=== PATIENT | female | born 1955 | race Hispanic/Latino ===

== ENCOUNTER 2019-11-07 13:22 | Outpatient (CLI) | payer OTHER ==
--- NOTE | 2019-11-07 15:10 | MMO ---
Bilateral MAMMO Bilat Diag DDI+MINOR. CLINICAL HISTORY: Patient is 64 years old and is seen for diagnostic exam,palpable abnormality and nipple abnormality in the left breast. The patient has no family history of breast cancer. The patient has no personal history of cancer. VIEWS: The views performed were: bilateral craniocaudal with tomosynthesis; bilateral mediolateral oblique with tomosynthesis; and bilateral mediolateral with tomosynthesis. FILMS COMPARED: The present examination has been compared to prior imaging studies performed at [facility] on 05/09/2012, 11/13/2014 and 11/07/2019. This study has been interpreted with the assistance of computer-aided detection. MAMMOGRAM FINDINGS: There are scattered fibroglandular densities. Finding 1: There are stable benign appearing calcifications seen in both breasts. Finding 2: There is a new irregular mass measuring 25 millimeters with spiculated margins seen in the left breast at 10 o'clock. Finding 3: There is a new irregular mass measuring 7 millimeters with indistinct margins and associated amorphous or indistinct calcifications seen in the right breast at 2 o'clock. Finding 4: There is a focal asymmetry measuring 18 millimeters with obscured margins seen in the upper-outer region of the right breast. IMPRESSION: FINDING 1: STABLE CALCIFICATIONS IN BOTH BREASTS ARE BENIGN. FINDING 2: NEW MASS IN THE LEFT BREAST IS HIGHLY SUGGESTIVE OF MALIGNANCY. AN ULTRASOUND-GUIDED BREAST BIOPSY IS RECOMMENDED. ULTRASOUND - SPICULATED MASS IS THE PALPABLE FINDING FINDING 3: NEW MASS IN THE RIGHT BREAST AT 2 O'CLOCK IS SUSPICIOUS. AN ULTRASOUND-GUIDED BREAST BIOPSY IS RECOMMENDED. MASS WITH DISTORTION ON ULTRASOUND. FINDING 4: FOCAL ASYMMETRY IN THE UPPER-OUTER REGION OF THE RIGHT BREAST IS SUSPICIOUS. AN ULTRASOUND-GUIDED BREAST BIOPSY IS RECOMMENDED. SOLID ON ULTRASOUND THE RESULTS OF THIS EXAM WERE SENT TO THE PATIENT. ACR BI-RADS Category 5 - Highly suggestive of malignancy - appropriate action should be taken MAMMOGRAPHY NOTE: 1. A negative mammogram report should not delay a biopsy if a dominant of clinically suspicious mass is present. 2. Approximately 10% to 15% of breast cancers are not detected by mammography. 3. Adenosis and dense breasts may obscure an underlying neoplasm. Reported by: YANE ACOSTA MD Electonically Signed: [id number]
--- NOTE | 2019-11-07 15:36 | ULT ---
RIGHT BREAST ULTRASOUND: 11/07/19 HISTORY: Patient presents with a palpable finding in the left breast and abnormal mammographic findings in the right breast. In the 2 o'clock position of the right breast, approximately 3 cm from the nipple, the re is a poorly circumscribed solid mass measuring 0.4 x 0.6 x 0.6 cm in size. I feel that this corres ponds to the mass and associated microcalcifications in the 2 o'clock position of the right breast se en on diagnostic mammogram. In addition, there is a poorly circumscribed somewhat multilobulated appe aring masses with some shadowing in the 11 o'clock aspect of the right breast. There are possibly two additional smaller masses, immediately adjacent to this larger mass. These also appear to be potenti ally solid. These certainly have a suspicious appearance. This area at 11 o'clock 2 cm from the nipp le corresponds to an area of parenchymal dense asymmetry on the diagnostic mammogram. IMPRESSION: Poorly circumscribed 0.4 x 0.6 x 0.6 cm diameter mass in the 2 o'clock position 3 cm from the nipple in the right breast. This has a suspicious appearance. Ultrasound guided biopsy is recommended. BI-RADS 4: Suspicious Abnormality - Biopsy Should Be Considered Usually requires biopsy Suspicious finding in the 2 o'clock position of the right breast. Poorly circumscribed solid mass cor responding to area on mammogram with some associated microcalcifications. Ultrasound guided biopsy is recommended. Second abnormal finding in the 11 o'clock position in the right breast which is greater than 2 cm in diameter solid and shows some shadowing and potentially two adjacent solid satellite lesions. BI-RADS 4: Suspicious Abnormality - Biopsy Should Be Considered. Usually requires biopsy. Ultrasound guided biopsy is recommended. The patient is being scheduled for the ultrasound guided biopsies. Findings were discussed at length with the patient using a embroiderer. POS: OFF
--- NOTE | 2019-11-07 16:02 | ULT ---
LEFT BREAST ULTRASOUND: 11/07/19 HISTORY: Patient presents with a palpable finding in the 10 o'clock aspect of the left breast. Diagnostic mamm ogram demonstrates a spiculated mass. Ultrasound examination at the 10 o'clock position, 2 cm from th e nipple, demonstrates a poorly circumscribed somewhat spiculated mass measuring approximately 1.3 x 1.7 x 2 cm in size corresponding to the spiculated mass on mammogram and corresponding to the palpabl e finding. IMPRESSION: BIRADS 5: Highly Suggestive of Malignancy - Appropriate Action Should Be Taken Requires biopsy or surgical treatment Ultrasound guided biopsy is being scheduled and will be performed later this afternoon. Findings were discussed with the patient through the use of an emergency services professional. POS: OFF
--- NOTE | 2019-11-07 16:47 | MMO ---
FILMS COMPARED: The present examination has been compared to prior imaging studies performed at [facility] on 11/13/2014 and 11/07/2019. MAMMOGRAM FINDINGS: There are scattered fibroglandular densities. IMPRESSION: FINDING IN THE RIGHT BREAST IS CONFIRMED UTILIZING POST PROCEDURE MAMMOGRAM. BX CLIPS UPPER OUTER AND UPPER INNER RT BREAST. Reported by: YANE ACOSTA MD Electonically Signed: [id number]
--- NOTE | 2019-11-07 16:49 | MMO ---
FILMS COMPARED: The present examination has been compared to prior imaging studies performed at [facility] on 11/13/2014 and 11/07/2019. MAMMOGRAM FINDINGS: There are scattered fibroglandular densities. IMPRESSION: FINDING IN THE LEFT BREAST IS CONFIRMED UTILIZING POST PROCEDURE MAMMOGRAM. BX CLIP INNER MID LT BREAST. Reported by: YANE ACOSTA MD Electonically Signed: [id number]
--- NOTE | 2019-11-07 17:12 | ULT ---
PROCEDURE: Ultrasound-guided biopsy of single mass left breast and 2 masses right breast Ultrasound-guided biopsy marker clip at sites of biopsy PROVIDED CLINICAL HISTORY: Patient with bilateral mammograms demonstrating a spiculated masses in each breast with sonographic e valuation demonstrating mass at the 2:00 position left breast as well as 2:00 position right breast and area of ill-defined shadowing 10:00 position right breast. COMPARISON: Ultrasound bilateral breasts on 11/07/2019 TECHNIQUE: After informed consent was obtained, the patient was placed on the sonography table in the supine pos ition. Limited sonographic evaluation of each breast was performed to evaluate the masses and sites of each breast mass were marked. The procedure including the risks and complications were explained t o the patient via a jewel stripper. Patient verbally agreed to proceed with the procedure and understood risks and complications. Informed consent was signed. Left breast at site of biopsy was meticulously prepped and draped in usual sterile fashion. Skin and subcutaneous tissues were infiltrated with buffered 1% lidocaine for local anesthesia, and a small skin incision was made. Utilizing concurrent real-time ultrasound guidance, a 14-gauge biopsy needle was advanced into the right breast. A total of 4 biopsy specimens were obtained. Biopsy marker clip was then deployed at site of biopsy utilizing ultrasound guidance. Hemostasis was achieved with direc t pressure, and a dry sterile dressing was placed. The left breast was meticulously prepped and draped in usual fashion. The skin and subcutaneous soft tissues at the 2:00 position left breast were infiltrated with buffered 1% lidocaine for local anesthesia. Small skin incision was made. Utilizing concurrent real-time ultrasound guidance, a 14-ga uge biopsy needle was advanced, and 4 biopsy specimens were obtained. Biopsy marker clip was then deployed at site of biopsy utilizing real-time sonographic guidance. Hemostasis was achieved with dir ect pressure. The skin and subcutaneous soft tissues at the 10:00 position right breast were infiltrated with buffe red 1% lidocaine for local anesthesia at the intended puncture site. Small skin incision was made. Utilizing concurrent real-time ultrasound guidance, a 14-gauge biopsy needle was advanced, and a tota l 4 biopsy specimens were obtained. Biopsy marker clip was then deployed utilizing ultrasound guidance at site of biopsy. Hemostasis was achieved with direct pressure. Dry sterile dressings were placed at sites of biopsy in the right breast. The patient tolerated the procedure well and without immediate consultation. Patient was transported to mammography to obtain bilateral mammograms and evaluate sites of biopsy marker clip placement. Biopsy marker clips are seen adjacent to the mammographic abnormalities at 2:00 position in each [address] which correspond to the sonographic abnormalities. Biopsy marker clip is seen in the upper outer right breast at sites of sonographic abnormality. IMPRESSION: 1. Technically successful biopsy of left breast mass 2:00 position as well as right breast masses at the 2:00 and 10:00 positions. 2. Technically successful biopsy marker clip placement at sites of biopsy in each breast. 3. Pathology is currently pending.
== END 2019-11-07 13:23 | disposition home or self-care (01) ==
LOC: BICMAMMO 13:22
PROVIDERS: ATTEND Nurse Practitioner Family
DX: N63.12 Unspecified lump in the right breast, upper inner quadrant (principal); N63.11 Unspecified lump in the right breast, upper outer quadrant; N63.21 Unspecified lump in the left breast, upper outer quadrant; R92.1 Mammographic calcification found on diagnostic imaging of breast; N64.89 Other specified disorders of breast; Q83.9 Congenital malformation of breast, unspecified
CPT/HCPCS: 19083; 19084; 77066; 88305; 88341; 88342; G0279

== ENCOUNTER 2019-12-20 23:50 | Emergency (ER) | payer OTHER | END 2019-12-21 00:38 | disposition home or self-care (01) | LOC: ERS 23:50 | DX: Z43.4 Encounter for attention to other artificial openings of digestive tract (principal); E78.5 Hyperlipidemia, unspecified; I10 Essential (primary) hypertension | CPT/HCPCS: 99282 ==

== ENCOUNTER 2020-01-08 07:48 | Outpatient (CLI) | payer OTHER ==
[2020-01-09 15:28] LABS: SARS-CoV-2 MS2 Positive; SARS-CoV-2 N Gene Negative; SARS-CoV-2 S Gene Negative; SARS-CoV-2 by NAA Not Detected (NotDetected); SARS-CoV-2 orf1ab Negative
== END 2020-01-08 07:49 | disposition home or self-care (01) ==
LOC: LABBT 07:48
PROVIDERS: ATTEND Specialist
DX: Z01.812 Encounter for preprocedural laboratory examination (principal); Z20.828 Contact with and (suspected) exposure to other viral communicable diseases; C50.911 Malignant neoplasm of unspecified site of right female breast
CPT/HCPCS: 87635; U0003

== ENCOUNTER 2020-01-11 07:23 | Day surgery (SDC) | payer OTHER ==
[2020-01-08 16:28] VITALS: BMI 29.6
[2020-01-11] MEDS ORDERED: Acetaminophen 500 MG TAB ONE (08:53)
[2020-01-11] MEDS ORDERED: Ketorolac Tromethamine 30 MG/ML VIAL ONE (08:53)
[2020-01-11 09:10] LABS: #Basophils 0.1 thou/uL (0.0-0.2); #Eosinphils 0.2 thou/uL (0.0-0.7); #Lymphocytes 1.9 thou/uL (1.20-3.40); #Monocytes 0.6 thou/uL (0.11-0.59); #Neutrophils 2.4 thou/uL (1.40-6.50); %Basophils 1.1 % (0.0-1.0); %Monocytes 10.8 % (0.0-10.0); %Neutrophils 47.2 % (42.0-75.0); Hemoglobin 14.3 g/dL (12.0-16.0); Mean Corpuscular HGB CONC 34.3 g/dL (32.0-36.0); Mean Corpuscular Volume 90.4 fL (78.0-98.0); Mean Platelet Volume 9.6 fL (7.4-10.4); Platelet Count 173 thou/uL (130-400); RBC Distribution Width 11.6 % (11.5-14.5); Red Blood Cell (RBC) Count 4.63 mill/uL (4.20-5.40); White Blood Cell (WBC) Count 5.1 thou/uL (4.8-10.8)
[2020-01-11 09:30] LABS: Anion Gap 11 mmol/L (10-20); BUN (Urea Nitrogen) 14 mg/dL (9.8-20.1); Calc. Creatinine Clearance 69 mL/min (70-130); Calcium 9.7 mg/dL (7.8-10.44); Carbon Dioxide 26 mmol/L (23-31); Chloride 107 mmol/L (98-107); Estimated GFR-MDRD 59; Glucose 101 mg/dL (80-115); Potassium 4.5 mmol/L (3.5-5.1); Sodium 139 mmol/L (136-145)
[2020-01-11] MEDS ORDERED: PHENYLEPHRINE-NS 100 MCG/ML 10 ML SYRINGE ONE (10:24)
[2020-01-11] MEDS ORDERED: Lidocaine 1% PF 5 ML VIAL ONE (10:24)
[2020-01-11] MEDS ORDERED: Dexamethasone 20 MG/5 ML VIAL ONE (10:24)
[2020-01-11] MEDS ORDERED: EPHEDRINE 25 MG/5 ML SYRINGE ONE (10:24)
[2020-01-11] MEDS ORDERED: PROPOFOL 200 MG/20 ML VIAL ONE (10:24)
[2020-01-11] MEDS ORDERED: Ondansetron PF 4 MG/2 ML Vial ONE (10:24)
[2020-01-11] MEDS ORDERED: Isosulfan Blue 50 MG/5 ML VIAL ONE (10:58)
[2020-01-11] MEDS ORDERED: Lidocaine 1% (PF) 30 ML VIAL ONE (10:58)
[2020-01-11] MEDS ORDERED: Bupivacaine/Epinephrine 0.25% 30 ML VIAL ONE ×2 (10:58→12:12)
[2020-01-11] MEDS ORDERED: Fentanyl 100 MCG/2 ML VIAL ONE (11:01)
[2020-01-11] MEDS ORDERED: HYDROmorphone 0.5 MG/0.5 ML SYRINGE ONE (11:01)
--- NOTE | 2020-01-11 12:35 | NM ---
EXAM: NM Lymphoscintigraphy PROVIDED CLINICAL HISTORY: Malignant neoplasm of unspecified site right female breast. COMPARISON: None FINDINGS: The patient was administered 0.426 mCi technetium 99m filtered sulfur colloid subcutaneously in a rig ht periareolar location in 4 separate aliquots. Immediate AP and lateral images demonstrates 2 focal areas of increased uptake seen in the axillary region likely corresponding to sentinel lymph no dewayne. After imaging of the uptake in the right axilla, patient was transported to surgery. IMPRESSION: Focal areas of uptake of radiotracer in the right axilla suggesting sentinel lymph nodes.
--- NOTE | 2020-01-11 14:02 | RAD ---
PORTABLE CHEST: 01/11/20 at 1:34 p.m. HISTORY: Mediport placement. Right breast cancer. FINDINGS: There is a left subclavian Port-A-Cath with tip in the projection of the cavoatrial junction. The hea rt size is normal. No focal areas of consolidation, pneumothoraces or pleural effusions are seen. IMPRESSION: No acute process. POS: AH
[2020-01-11] MEDS ORDERED: HYDROcodone/Acetaminophen 5/325 mg Tablet ONE (14:33)
--- NOTE | 2020-01-12 13:49 | OP ---
DATE OF PROCEDURE: 01/11/2020 PREOPERATIVE DIAGNOSES: Bilateral breast cancer, large right axillary mass (suspected heterotopic breast tissue). PROCEDURES PERFORMED: Left subclavian standard-sized power compatible MediPort placement, excision of 10 cm right axillary mass, right axillary sentinel lymph node biopsy. ANESTHESIA: General endotracheal. INDICATIONS: The patient is a 64-year-old female. She had previously undergone a left mastectomy and a right needle localized biopsy. The right-sided biopsy proved to show an area of invasive cancer in an area previously thought to be noninvasive cancer. She is therefore returned to the operating room at this time for right axillary sentinel lymph node biopsy. Due to the aggressive nature of her left breast cancer, she is felt to likely require chemotherapy, and MediPort placement is requested for this purpose. Finally, she has a large bulging mass from her right axilla that will need to be removed in order to do the sentinel lymph node biopsy. DESCRIPTION OF OPERATION: Informed consent was obtained, the patient was taken to the operating room, where general endotracheal anesthesia obtained with the patient in supine position. Bilateral chest and axilla were prepped with ChloraPrep and draped in sterile fashion. Attention was turned first to the left chest. Local anesthetic was infiltrated and large gauge needle was passed under the clavicle in subclavian vein. Guidewire was passed through the needle. Needle was removed, skin was incised, pocket was dissected extending inferiorly. Fluoroscopy demonstrated the wire extending down the superior vena cava. Introducer dilator was passed over the wire under fluoroscopic guidance. The catheter was passed through the introducer and introducer removed in the usual peel-apart fashion. Catheter was trimmed to appropriate length and secured to the locking hub of the MediPort. The port was secured to pectoral fascia with 2 interrupted sutures of 3-0 Prolene. The wound was closed in layers with 3-0 and 4-0 Monocryl. Dermabond was placed externally. The port was accessed easily and flushed with heparinized saline. The x-ray demonstrated good position of the port and catheter. Attention was turned to the right axilla. The patient had undergone preoperative lymphoscintigraphy, demonstrating radioactive right axillary sentinel lymph nodes. The large bulging mass in the right axilla (likely felt to be heterotopic breast tissue) was marked and an elliptical transverse incision was created. This was immediately overlying the area necessary for the sentinel lymph node biopsy. The specimen was removed intact and submitted to Pathology. There was no radioactive tissue within the specimen that was removed. Neoprobe was utilized to identify areas of radio-intensity within the axilla. I dissected two separate lymph nodes, both of which were densely blue-stained as well (the patient had been infiltrated with Lymphazurin preoperatively). Each lymph node was dissected circumferentially and all investing lymphatics were divided between clamps and 3-0 silk ties. The wound was tailored for closure. Because of the potential large space, I decided to place a drain within the wound. A #19 round fluted drain was placed and brought out inferiorly and secured with 3-0 nylon suture. The wound was closed in layers with 3-0 Vicryl and skin stevie. This was relatively long incision within the axilla. There were no complications. The patient tolerated the procedure well and was taken to recovery room in stable condition. Job ID: [id number]
== END 2020-01-11 15:20 | disposition home or self-care (01) ==
LOC: SDC 07:23
PROVIDERS: ATTEND Specialist
PROC: 07B53ZX Excision of Right Axillary Lymphatic, Percutaneous Approach, Diagnostic (ICD-10-PCS; principal; 2020-01-11)
PROC: 0HBT0ZZ Excision of Right Breast, Open Approach (ICD-10-PCS; principal; 2020-01-11)
DX: C50.911 Malignant neoplasm of unspecified site of right female breast (principal); I10 Essential (primary) hypertension; I25.10 Atherosclerotic heart disease of native coronary artery without angina pectoris; Z79.82 Long term (current) use of aspirin; Z79.899 Other long term (current) drug therapy; Z95.5 Presence of coronary angioplasty implant and graft
CPT/HCPCS: 36415; 71045; 78195; 80048; 85025; 88307; A9541; C1788; J0690; J1100; J1170; J1642; J1885; J2001; J2405; J2704; J3010; Q9968

== ENCOUNTER 2020-01-22 08:52 | Outpatient (CLI) | payer OTHER ==
--- NOTE | 2020-01-22 10:23 | CT ---
EXAM: CT chest, abdomen and pelvis with IV contrast PROVIDED CLINICAL HISTORY: Breast cancer FINDINGS: The heart, pericardium and great vessels demonstrate no evidence for acute abnormality. Vascular calc ification including coronary calcium is demonstrated. Left IJ implanted port is noted with tip terminating in the region of the cavoatrial junction. Lungs are free of significant opacity. No pleur al fluid or pneumothorax apparent. No evidence for thoracic lymph node enlargement. There is noncircumscribed fluid density and a small focus of gas seen within the right axilla, presumably post operative in nature. Changes of left mastectomy are seen. The solid abdominal organs demonstrate no evidence for significant abnormality. Bilateral subcentimet er renal hypodensities, statistically cysts but too small to definitively characterize. No bowel dilatation, inflammatory fat stranding, free fluid or lymph node enlargement apparent. The major vasc ular structures appear normal. The osseous structures demonstrate no acute abnormality. IMPRESSION: 1. No evidence for metastatic disease. 2. Noncircumscribed fluid and gas in the right axilla, presumably postoperative.
[2020-01-22] MEDS ORDERED: Iopamidol 370 76% 100 ML VIAL ONE (10:49)
--- NOTE | 2020-01-22 14:00 | NM ---
Whole body bone scan: 01/22/2020 HISTORY: Breast cancer TECHNIQUE: Anterior and posterior whole-body imaging is obtained following intravenous demonstration of 30 mCi technetium 99m labeled MDP FINDINGS: There is physiologic activity in the region of the kidneys and urinary bladder. Degenerativ e type changes are seen overlying the region of the great toes, right greater than left, bilateral ankles, bilateral knees, and bilateral shoulders. Degenerative type activity noted at the sternoclavi cular junction bilaterally. Focal area of increased radiotracer activity overlying the right mandible is likely on the basis of o dontogenic disease. Mild posterior mid thoracic spine and lower lumbar spine radiotracer activity noted, likely on the ba sis of degenerative facet hypertrophic change. IMPRESSION: No scintigraphic evidence of osseous metastatic disease.
== END 2020-01-22 08:53 | disposition home or self-care (01) ==
LOC: CT 08:52
PROVIDERS: ATTEND Internal Medicine Hematology & Oncology
DX: C50.812 Malignant neoplasm of overlapping sites of left female breast (principal); C50.111 Malignant neoplasm of central portion of right female breast
CPT/HCPCS: 71260; 74177; 78306; A9503; Q9967

== ENCOUNTER 2020-03-12 09:03 | Day surgery (SDC) | payer OTHER ==
[~2020-03-12 09:03] MED LIST: CYCLOPHOSPHAMIDE IVPB SCH; DOCEtaxel 130 MG in Sodium Chloride 0.9% 250 ML 250 ML IVPB SCH; Dexamethasone 20 MG in Sodium Chloride 0.9% 50 ML IVPB SCH; Dexamethasone Sod Phosphate 20 MG in Sodium Chloride 0.9% 50 ML IVPB SCH; PALONOSETRON HCL 0.05 MG/ML 5 ML VIAL IVP SCH; Palonosetron HCl 0.25 MG in Sodium Chloride 0.9% 50 ML IVPB SCH; SODIUM CHLORIDE 0.9% IVPB SCH
[2020-03-12] MEDS ORDERED: Cyclophosphamide 1 GM in Sodium Chloride 0.9% 250 ML 250 ML IV ONE (09:05)
[2020-03-12] MEDS ORDERED: Sodium Chloride 0.9% 20 ML ONE (09:12)
[2020-03-12 09:34] VITALS: BP 182/75; TEMP 98.6
[2020-03-12 09:39] LABS: #Lymphocytes 1.5 thou/uL (1.20-3.40); #Monocytes 0.4 thou/uL (0.11-0.59); #Neutrophils 12.4 thou/uL (1.40-6.50); %Basophils 0.1 % (0.0-1.0); %Eosinophils 0.2 % (0.0-10.0); %Lymphocytes 10.3 % (21.0-51.0); %Monocytes 2.9 % (0.0-10.0); %Neutrophils 86.5 % (42.0-75.0); Hemoglobin 14.4 g/dL (12.0-16.0); Mean Corpuscular HGB CONC 33.6 g/dL (32.0-36.0); Mean Corpuscular Hemoglobin 30.3 pg (27.0-31.0); Mean Corpuscular Volume 90.2 fL (78.0-98.0); Mean Platelet Volume 10.4 fL (7.4-10.4); Platelet Count 138 thou/uL (130-400); RBC Distribution Width 11.4 % (11.5-14.5); Red Blood Cell (RBC) Count 4.76 mill/uL (4.20-5.40); White Blood Cell (WBC) Count 14.3 thou/uL (4.8-10.8)
[2020-03-12 10:01] LABS: ALT (SGPT) 28 U/L (8-55); AST (SGOT) 20 U/L (5-34); Albumin 4.2 g/dL (3.4-4.8); Alkaline Phosphatase 86 U/L (40-110); Anion Gap 16 mmol/L (10-20); BUN (Urea Nitrogen) 15 mg/dL (9.8-20.1); Bilirubin, Total 0.7 mg/dL (0.2-1.2); Calc. Creatinine Clearance 73 mL/min (70-130); Calcium 9.6 mg/dL (7.8-10.44); Carbon Dioxide 19 mmol/L (23-31); Chloride 106 mmol/L (98-107); Globulin 2.9 g/dL (2.4-3.5); Glucose 230 mg/dL (80-115); Potassium 4.2 mmol/L (3.5-5.1); Protein, Total 7.1 g/dL (6.0-8.3); Sodium 137 mmol/L (136-145); Uric Acid 3.6 mg/dL (2.6-6.0)
== END 2020-03-12 12:37 | disposition home or self-care (01) ==
LOC: ONC/OP 09:03
PROVIDERS: ATTEND Internal Medicine Hematology & Oncology
DX: Z51.11 Encounter for antineoplastic chemotherapy (principal); C50.111 Malignant neoplasm of central portion of right female breast; C50.812 Malignant neoplasm of overlapping sites of left female breast
CPT/HCPCS: 80053; 83615; 84550; 85025; 96375; 96413; 96417; J1100; J1453; J1642; J2469; J3490; J7050; J9070; J9171

== ENCOUNTER 2020-03-13 13:46 | Day surgery (SDC) | payer OTHER ==
[~2020-03-13 13:46] MED LIST changes: -CYCLOPHOSPHAMIDE IVPB SCH; -DOCEtaxel 130 MG in Sodium Chloride 0.9% 250 ML 250 ML IVPB SCH; -Dexamethasone 20 MG in Sodium Chloride 0.9% 50 ML IVPB SCH; -Dexamethasone Sod Phosphate 20 MG in Sodium Chloride 0.9% 50 ML IVPB SCH; -PALONOSETRON HCL 0.05 MG/ML 5 ML VIAL IVP SCH; +PEGFILGRASTIM-JMDB 6 MG/0.6 ML SYRINGE SQ SCH; -Palonosetron HCl 0.25 MG in Sodium Chloride 0.9% 50 ML IVPB SCH; -SODIUM CHLORIDE 0.9% IVPB SCH
== END 2020-03-13 14:16 | disposition home or self-care (01) ==
LOC: ONC/OP 13:46
PROVIDERS: ATTEND Internal Medicine Hematology & Oncology
DX: Z51.89 Encounter for other specified aftercare (principal); C50.812 Malignant neoplasm of overlapping sites of left female breast; C50.111 Malignant neoplasm of central portion of right female breast
CPT/HCPCS: 96372; Q5108

== ENCOUNTER 2020-04-02 09:15 | Day surgery (SDC) | payer OTHER ==
[~2020-04-02 09:15] MED LIST changes: +Cyclophosphamide 1 GM in Sodium Chloride 0.9% 250 ML 250 ML IVPB SCH; +DOCEtaxel 130 MG in Sodium Chloride 0.9% 250 ML 250 ML IVPB SCH; +Dexamethasone Sod Phosphate 20 MG in Sodium Chloride 0.9% 50 ML IVPB SCH; +PALONOSETRON HCL 0.05 MG/ML 5 ML VIAL IVP SCH; -PEGFILGRASTIM-JMDB 6 MG/0.6 ML SYRINGE SQ SCH
[2020-04-02] MEDS ORDERED: Sodium Chloride 0.9% 20 ML ONE (09:25)
[2020-04-02 10:59] VITALS: BP 118/56
== END 2020-04-02 15:42 | disposition home or self-care (01) ==
LOC: ONC/OP 09:15
PROVIDERS: ATTEND Internal Medicine Hematology & Oncology
DX: Z51.11 Encounter for antineoplastic chemotherapy (principal); C50.111 Malignant neoplasm of central portion of right female breast; C50.812 Malignant neoplasm of overlapping sites of left female breast
CPT/HCPCS: 96367; 96375; 96413; 96417; J1100; J1453; J1642; J2469; J3490; J7050; J9070; J9171

== ENCOUNTER 2020-04-03 14:14 | Day surgery (SDC) | payer OTHER ==
[2020-04-03 15:42] VITALS: BP 138/65; TEMP 97.5
[2020-04-03] MEDS ORDERED: PEGFILGRASTIM-JMDB 6 MG/0.6 ML SYRINGE SQ SCH (16:00)
== END 2020-04-03 16:04 | disposition home or self-care (01) ==
LOC: ONC/OP 14:14
PROVIDERS: ATTEND Internal Medicine Hematology & Oncology
DX: Z51.89 Encounter for other specified aftercare (principal); C50.111 Malignant neoplasm of central portion of right female breast; C50.812 Malignant neoplasm of overlapping sites of left female breast
CPT/HCPCS: 96372; Q5108

== ENCOUNTER 2020-04-23 10:18 | Day surgery (SDC) | payer OTHER ==
[2020-04-23] MEDS ORDERED: Sodium Chloride 0.9% 20 ML ONE (10:41)
[2020-04-23 12:19] VITALS: BP 115/58; TEMP 97.8
== END 2020-04-23 15:39 | disposition home or self-care (01) ==
LOC: ONC/OP 10:18
PROVIDERS: ATTEND Internal Medicine Hematology & Oncology
DX: Z51.11 Encounter for antineoplastic chemotherapy (principal); C50.111 Malignant neoplasm of central portion of right female breast; C50.812 Malignant neoplasm of overlapping sites of left female breast
CPT/HCPCS: 96375; 96413; 96417; J1100; J1453; J1642; J2469; J3490; J7050; J9070; J9171

== ENCOUNTER 2020-04-24 14:20 | Day surgery (SDC) | payer OTHER ==
[~2020-04-24 14:20] MED LIST changes: -Cyclophosphamide 1 GM in Sodium Chloride 0.9% 250 ML 250 ML IVPB SCH; -DOCEtaxel 130 MG in Sodium Chloride 0.9% 250 ML 250 ML IVPB SCH; -Dexamethasone Sod Phosphate 20 MG in Sodium Chloride 0.9% 50 ML IVPB SCH; -PALONOSETRON HCL 0.05 MG/ML 5 ML VIAL IVP SCH; +PEGFILGRASTIM-JMDB 6 MG/0.6 ML SYRINGE SQ SCH
[2020-04-24 14:30] VITALS: BP 133/69
== END 2020-04-24 14:33 | disposition home or self-care (01) ==
LOC: ONC/OP 14:20
PROVIDERS: ATTEND Internal Medicine Hematology & Oncology
DX: Z51.89 Encounter for other specified aftercare (principal); C50.111 Malignant neoplasm of central portion of right female breast; C50.812 Malignant neoplasm of overlapping sites of left female breast
CPT/HCPCS: 96372; Q5108

== ENCOUNTER 2020-05-14 09:56 | Day surgery (SDC) | payer OTHER ==
[~2020-05-14 09:56] MED LIST changes: +Cyclophosphamide 1 GM in Sodium Chloride 0.9% 250 ML 250 ML IVPB SCH; +DOCEtaxel 130 MG in Sodium Chloride 0.9% 250 ML 250 ML IVPB SCH; +Dexamethasone Sod Phosphate 20 MG in Sodium Chloride 0.9% 50 ML IVPB SCH; +PALONOSETRON HCL 0.05 MG/ML 5 ML VIAL IVP SCH; -PEGFILGRASTIM-JMDB 6 MG/0.6 ML SYRINGE SQ SCH
[2020-05-14] MEDS ORDERED: Sodium Chloride 0.9% 20 ML ONE (10:03)
[2020-05-14 10:29] VITALS: BP 161/71; TEMP 98
== END 2020-05-14 14:54 | disposition home or self-care (01) ==
LOC: ONC/OP 09:56
PROVIDERS: ATTEND Internal Medicine Hematology & Oncology
DX: Z51.11 Encounter for antineoplastic chemotherapy (principal); C50.812 Malignant neoplasm of overlapping sites of left female breast; C50.111 Malignant neoplasm of central portion of right female breast; Z17.0 Estrogen receptor positive status [ER+]
CPT/HCPCS: 96367; 96375; 96413; 96417; J1100; J1453; J1642; J2469; J3490; J7050; J9070; J9171

== ENCOUNTER 2020-05-15 16:12 | Day surgery (SDC) | payer OTHER ==
[~2020-05-15 16:12] MED LIST changes: -Cyclophosphamide 1 GM in Sodium Chloride 0.9% 250 ML 250 ML IVPB SCH; -DOCEtaxel 130 MG in Sodium Chloride 0.9% 250 ML 250 ML IVPB SCH; -Dexamethasone Sod Phosphate 20 MG in Sodium Chloride 0.9% 50 ML IVPB SCH; -PALONOSETRON HCL 0.05 MG/ML 5 ML VIAL IVP SCH; +PEGFILGRASTIM-JMDB 6 MG/0.6 ML SYRINGE SQ SCH
[2020-05-15 16:28] VITALS: BP 157/70; TEMP 97.8
== END 2020-05-15 16:25 | disposition home or self-care (01) ==
LOC: ONC/OP 16:12
PROVIDERS: ATTEND Internal Medicine Hematology & Oncology
DX: Z51.89 Encounter for other specified aftercare (principal); C50.111 Malignant neoplasm of central portion of right female breast; C50.812 Malignant neoplasm of overlapping sites of left female breast
CPT/HCPCS: 96372; Q5108

== ENCOUNTER 2023-02-15 12:25 | Outpatient (CLI) | payer MEDICARE | END 2023-02-15 12:26 | disposition home or self-care (01) | LOC: BICMAMMO 12:25 | PROVIDERS: ATTEND Specialist | DX: Z12.31 Encounter for screening mammogram for malignant neoplasm of breast (principal); Z91.89 Other specified personal risk factors, not elsewhere classified; Z90.12 Acquired absence of left breast and nipple; Z85.3 Personal history of malignant neoplasm of breast | CPT/HCPCS: 77063; 77067 ==

== ENCOUNTER 2024-05-29 13:05 | Outpatient (CLI) | payer MEDICARE | END 2024-05-29 13:06 | disposition home or self-care (01) | LOC: BICMAMMO 13:05 | PROVIDERS: ATTEND Specialist | DX: Z08 Encounter for follow-up examination after completed treatment for malignant neoplasm (principal); Z85.3 Personal history of malignant neoplasm of breast | CPT/HCPCS: 77065; G0279 ==